=== PATIENT | female | born 1965 | race Caucasian/White ===

== ENCOUNTER 2016-11-02 07:57 | Emergency (ER) | payer MEDICARE, OTHER ==
--- NOTE | 2016-11-02 08:10 | EDM.PDOC ---
ED HPI GENERAL MEDICAL PROBLEM - General Chief Complaint: Lower Extremity Injury/Pain Stated Complaint: RIGHT KNEE PAIN Time Seen by Provider: 11/02/16 08:06 - History of Present Illness INITIAL COMMENTS - FREE TEXT/NARRATIVE: HISTORY AND PHYSICAL: History of present illness: Patient 51-year-old white female presents with a concern of right knee pain 3 weeks she denies fever chills nausea vomiting or other concern she states this may be related to chronic back problems and favoring that knee. Review of systems: As per history of present illness and below otherwise all systems reviewed and negative. Past medical history: As per history of present illness and as reviewed below otherwise noncontributory. Surgical history: As per history of present illness and as reviewed below otherwise noncontributory. Social history: No reported history of drug or alcohol abuse. Family history: As per history of present illness and as reviewed below otherwise noncontributory. Physical exam: HEENT: Atraumatic, normocephalic, pupils reactive, negative for conjunctival pallor or scleral icterus, mucous membranes moist, throat clear, neck supple, nontender, trachea midline. Lungs: Clear to auscultation, breath sounds equal bilaterally, chest nontender. Heart: S1S2, regular, negative for clicks, rubs, or JVD. Abdomen: Soft, nondistended, nontender. Negative for masses or hepatosplenomegaly. Negative for costovertebral tenderness. Pelvis: Stable nontender. Genitourinary: Deferred. Rectal: Deferred. Extremities: Right knee Atraumatic, negative for cords or calf pain. Neurovascular unremarkable. Joint grossly stable no effusion no crepitation no point tenderness neurovascular exam unremarkable Neuro: Awake, alert, oriented. Cranial nerves II through XII unremarkable. Cerebellum unremarkable. Motor and sensory unremarkable throughout. Exam nonfocal. Diagnostics: X-ray right knee Therapeutics: None Impression: #1 right knee pain Definitive disposition and diagnosis as appropriate pending reevaluation and review of above. - Related Data Allergies Allergy/AdvReac Type Severity Reaction Status Date / Time amoxicillin [From Augmentin] Allergy Vomiting Verified 11/02/16 08:03 clavulanic acid Allergy Vomiting Verified 11/02/16 08:03 [From Augmentin] Review of Systems - Review of Systems Review Of Systems: ROS reveals no pertinent complaints other than HPI. ED EXAM, GENERAL - Physical Exam Exam: See Below (See dictation) Course - Orders/Labs/Meds Orders: Active Orders 24 hr Category Date Time Status Knee 3V Rt [CR] Stat Exams 11/02/16 08:08 Ordered Departure - Departure Time of Disposition: 08:09 Disposition: Home, Self-Care 01 Condition: Good Clinical Impression: Knee pain - Discharge Information Forms: ED Department Discharge Additional Instructions: The following information is given to patients seen in the emergency department who are being discharged to home. This information is to outline your options for follow-up care. We provide all patients seen in our emergency department with a follow-up referral. The need for follow-up, as well as the timing and circumstances, are variable depending upon the specifics of your emergency department visit. If you don't have a primary care physician on staff, we will provide you with a referral. We always advise you to contact your personal physician following an emergency department visit to inform them of the circumstance of the visit and for follow-up with them and/or the need for any referrals to a consulting specialist. The emergency department will also refer you to a specialist when appropriate. This referral assures that you have the opportunity for followup care with a specialist. All of these measure are taken in an effort to provide you with optimal care, which includes your followup. Under all circumstances we always encourage you to contact your private physician who remains a resource for coordinating your care. When calling for followup care, please make the office aware that this follow-up is from your recent emergency room visit. If for any reason you are refused follow-up, please contact the [facility] emergency department at and asked to speak to the emergency department charge nurse. HENRY [facility] - [facility] Professional [address], [address] [place] [address] Call schedule routine appointment Motrin or Tylenol as directed return as needed as discussed - My Orders Last 24 Hours: My Active Orders 11/02/16 08:08 Knee 3V Rt [CR] Stat - Assessment/Plan Last 24 Hours: My Active Orders 11/02/16 08:08 Knee 3V Rt [CR] Stat
--- NOTE | 2016-11-02 09:02 | CR ---
EXAMINATION: Right knee HISTORY: Pain COMPARISON: None TECHNIQUE: 3 views FINDINGS/IMPRESSION: There is no acute osseous abnormality, effusion, dislocation, or fracture ident ified. Bone mineralization and joint spaces are grossly preserved. Mild prepatellar soft tissue thic kening.
[2016-11-02 09:35] VITALS: BP 108/57
== END 2016-11-02 09:18 | disposition home or self-care (01) ==
LOC: MW.ED 07:57
DX: M25.561 Pain in right knee (principal); Z88.1 Allergy status to other antibiotic agents
CPT/HCPCS: 73562-26-RT; 73562-RT; 99282; 99283

== ENCOUNTER 2017-01-02 20:22 | Emergency (ER) | payer MEDICARE, MEDICAID ==
[2017-01-02] MEDS ORDERED: LORazepam 1 MG Tab PO ONE (20:46)
[2017-01-02] MEDS ORDERED: Acetaminophen 500 MG Tab PO ONE (20:48)
[2017-01-02] MEDS ORDERED: Famotidine 20 MG Tab PO ONE (20:48)
--- NOTE | 2017-01-02 20:52 | EDM.PDOC ---
ED HPI GENERAL MEDICAL PROBLEM - General Chief Complaint: General Stated Complaint: ANXIETY/HEARTBURN Time Seen by Provider: 01/02/17 20:49 Source of Information: Reports: Patient History Limitations: Reports: No Limitations - History of Present Illness INITIAL COMMENTS - FREE TEXT/NARRATIVE: History of present illness: [51-year-old female comes in with acute anxiety as well as pain in her knee and heartburn. Patient has several family issues going on and she is currently sick at the hospital without her routine medicines] Review of systems: As per history of present illness and below otherwise all systems reviewed and negative. Past medical history: As per history of present illness and as reviewed below otherwise noncontributory. Surgical history: As per history of present illness and as reviewed below otherwise noncontributory. Social history: No reported history of drug or alcohol abuse. Family history: As per history of present illness and as reviewed below otherwise noncontributory. Physical exam: HEENT: Atraumatic, normocephalic, pupils reactive, negative for conjunctival pallor or scleral icterus, mucous membranes moist, throat clear, neck supple, nontender, trachea midline. Lungs: Clear to auscultation, breath sounds equal bilaterally, chest nontender. Heart: S1S2, regular, negative for clicks, rubs, or JVD. Abdomen: Soft, nondistended, nontender. Negative for masses or hepatosplenomegaly. Negative for costovertebral tenderness. Pelvis: Stable nontender. Genitourinary: Deferred. Rectal: Deferred. Extremities: Atraumatic, negative for cords or calf pain. Neurovascular unremarkable. Neuro: Awake, alert, oriented. Cranial nerves II through XII unremarkable. Cerebellum unremarkable. Motor and sensory unremarkable throughout. Exam nonfocal. Assessment is benign save the subjective complaint as noted in history of present illness patient is presenting very anxious and tearful. Patient requesting a routine meds she is trapped in the hospital until much later this evening to be Tylenol, Ativan, and Pepcid for pain in her knee, anxiety and heartburn. Diagnostics: [] Therapeutics: [Ativan, Tylenol, Pepcid ] Impression: [#1Anxiety, #2 knee pain #3 GERD] Plan: [Given medication here to patient until she can get home] Definitive disposition and diagnosis as appropriate pending reevaluation and review of above. epigastric Pain Score (Numeric/FACES): 8 - Related Data Allergies Allergy/AdvReac Type Severity Reaction Status Date / Time amoxicillin [From Augmentin] Allergy Vomiting Verified 01/02/17 20:28 clavulanic acid Allergy Vomiting Verified 01/02/17 20:28 [From Augmentin] morphine Allergy Nausea and Verified 01/02/17 20:28 Vomiting Home Meds: Home Meds Dextroamphetamine/Amphetamine [Adderall 20 mg Tablet] 25 mg PO DAILY 11/02/16 [ History] Gabapentin [Neurontin] 900 mg PO TID 11/02/16 [History] traZODone HCl [Trazodone HCl] 100 mg PO BEDTIME 11/02/16 [History] Acetaminophen [Tylenol] 1 tab PO ASDIRECTED PRN 12/29/16 [History] Celecoxib 200 mg PO DAILY 12/29/16 [History] FLUoxetine HCl [Prozac] 20 mg PO BID 12/29/16 [History] Lisinopril/Hydrochlorothiazide [Lisinopril-Hctz 10-12.5 mg Tab] 1 tab PO DAILY 12/29/16 [History] Naproxen 1 tab PO ASDIRECTED PRN 12/29/16 [History] busPIRone [Buspar] 5 mg PO TID 12/29/16 [History] tiZANidine HCl [Tizanidine HCl] 2 mg PO ASDIRECTED PRN 12/29/16 [History] Past Medical History - Past Health History Medical/Surgical History: Denies Medical/Surgical History HEENT History: Reports: Other (See Below) Other HEENT History: "no teeth" Cardiovascular History: Reports: Hypertension Respiratory History: Reports: Sleep Apnea, SOB Other Respiratory History: does not use CPAP, SOB at times (smokes 1 pack per day for 30 yrs) Gastrointestinal History: Reports: GERD Genitourinary History: Reports: Renal Calculus 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: Musculoskeletal History: Reports: Arthritis, Back Pain, Chronic, Fracture Neurological History: Reports: None Psychiatric History: Reports: ADHD, Anxiety, Depression, PTSD Endocrine/Metabolic History: Reports: Obesity/BMI 30+ Hematologic History: Reports: None Immunologic History: Reports: None Oncologic (Cancer) History: Reports: None Dermatologic History: Reports: None - Infectious Disease History Infectious Disease History: Reports: Measles, Mumps - Past Surgical History Head Surgeries/Procedures: Reports: None Neurological Surgical History: Reports: Lumbar Spine Other Neurological Surgeries/Procedures: hx lower back surgery x2 Musculoskeletal Surgical History: Reports: Arthroscopic Knee, Carpal Tunnel, Other (See Below) Other Musculoskeletal Surgeries/Procedures:: elbow surgery, foot surgery x2 Social & Family History - Family History Family Medical History: Noncontributory - Tobacco Use Smoking Status *Q: Current Every Day Smoker Years of Tobacco use: 30 Packs/Tins Daily: 1 - Caffeine Use Caffeine Use: Reports: Coffee Caffeine Use Comment: 2 cups daily - Recreational Drug Use Recreational Drug Use: No ED ROS GENERAL - Review of Systems Review Of Systems: See Below (History of present illness) ED EXAM, GENERAL - Physical Exam Exam: See Below (History of present illness) Course - Vital Signs Last Recorded V/S: Last Vital Signs Temp 36.5 C 01/02/17 20:29 Pulse 88 01/02/17 20:29 Resp 18 01/02/17 20:29 BP 157/83 H 01/02/17 20:29 Pulse Ox 95 01/02/17 20:29 - Orders/Labs/Meds Orders: Active Orders 24 hr Category Date Time Status Famotidine [Pepcid] Med 01/02/17 20:48 Once 20 mg PO ONETIME ONE Meds: Medications Discontinued Medications Generic Name Dose Route Start Last Admin Trade Name Rashard PRN Reason Stop Dose Admin Acetaminophen 1,000 mg 01/02/17 20:48 Tylenol Extra Strength PO 01/02/17 20:49 ONETIME ONE Lorazepam 1 mg 01/02/17 20:46 Ativan PO 01/02/17 20:47 ONETIME ONE Departure - Departure Time of Disposition: 20:51 Disposition: Home, Self-Care 01 Condition: Good Clinical Impression: Knee pain, GERD (gastroesophageal reflux disease), Anxiety - Discharge Information Additional Instructions: The following information is given to patients seen in the emergency department who are being discharged to home. This information is to outline your options for follow-up care. We provide all patients seen in our emergency department with a follow-up referral. The need for follow-up, as well as the timing and circumstances, are variable depending upon the specifics of your emergency department visit. If you don't have a primary care physician on staff, we will provide you with a referral. We always advise you to contact your personal physician following an emergency department visit to inform them of the circumstance of the visit and for follow-up with them and/or the need for any referrals to a consulting specialist. The emergency department will also refer you to a specialist when appropriate. This referral assures that you have the opportunity for follow-up care with a specialist. All of these measure are taken in an effort to provide you with optimal care, which includes your follow-up. Under all circumstances we always encourage you to contact your private physician who remains a resource for coordinating your care. When calling for follow-up care, please make the office aware that this follow-up is from your recent emergency room visit. If for any reason you are refused follow-up, please contact the [facility] Emergency Department at and asked to speak to the emergency department charge nurse. Resume taking your normal routine meds when you get Home Follow up with your PCP as scheduled Return to ED as needed as discussed - My Orders Last 24 Hours: My Active Orders 01/02/17 20:48 Famotidine [Pepcid] 20 mg PO ONETIME ONE - Assessment/Plan Last 24 Hours: My Active Orders 01/02/17 20:48 Famotidine [Pepcid] 20 mg PO ONETIME ONE
[2017-01-02 21:39] VITALS: BP 158/74
== END 2017-01-02 21:26 | disposition home or self-care (01) ==
LOC: MW.ED 20:22
DX: F41.9 Anxiety disorder, unspecified (principal); M25.569 Pain in unspecified knee; K21.9 Gastro-esophageal reflux disease without esophagitis; I10 Essential (primary) hypertension; E66.9 Obesity, unspecified; F17.210 Nicotine dependence, cigarettes, uncomplicated; Z87.442 Personal history of urinary calculi; Z88.1 Allergy status to other antibiotic agents; Z88.5 Allergy status to narcotic agent; Z79.899 Other long term (current) drug therapy; Z68.35 Body mass index [BMI] 35.0-35.9, adult
CPT/HCPCS: 99282; A9270

== ENCOUNTER 2017-01-03 06:20 | Day surgery (SDC) | payer MEDICARE ==
[~2017-01-03 06:20] MED LIST: Clindamycin Phosphate in D5W 600 MG in Premix Bag 50 BAG IV ONE; Lactated Ringers 1,000 ML IV SCH; Lidocaine 1% 20 ML MDV ONE
[2017-01-03] MEDS ORDERED: Propofol 200 MG/20 ML SDV ONE (07:11)
[2017-01-03] MEDS ORDERED: Ondansetron 4 MG/2 ML SDV ONE (07:11)
[2017-01-03] MEDS ORDERED: fentaNYL 100 MCG/2 ML SDV ONE (07:11)
[2017-01-03] MEDS ORDERED: Midazolam 1 MG/ML 2 ML SDV ONE (07:12)
[2017-01-03] MEDS ORDERED: Clindamycin Phosphate in D5W 600 MG in Premix Bag 50 BAG IV ONE ×2 (07:15)
[2017-01-03] MEDS ORDERED: Succinylcholine/Normal Saline 200 MG/10 ML Syringe ONE (07:38)
--- NOTE | 2017-01-03 07:54 | PCM.PREANE ---
Preanesthetic Assessment - Procedure Proposed Procedure: Right knee arthroscopic lateral and medial menisectomy - Anesthesia/Transfusion/Family Hx Anesthesia History: Prior Anesthesia Without Reaction Family History of Anesthesia Reaction: No Transfusion History: No Prior Transfusion(s) Additional History: Lumbar back rods and pain with lying on her back. Usually sleeps on her side. She took no meds today. She is a smoker. - Review of Systems General: Other (pain in knee) Pulmonary: Other (smoker) Cardiovascular: No Symptoms Gastrointestinal: Other (GERD, takes OTC prilosec) Neurological: Pre-Existing Deficit (lumbar back pain, s/p operative rods, chronic pain - on gabapentin) Other: Reports: Anxiety - Physical Assessment NPO Status Date: 01/02/17 NPO Status Time: 22:00 O2 Sat by Pulse Oximetry: 97 Respiratory Rate: 16 Vital Signs: Last Vital Signs Temp 97.2 F 01/03/17 06:48 Pulse 87 01/03/17 06:48 Resp 16 01/03/17 06:48 BP 151/83 H 01/03/17 06:48 Pulse Ox 97 01/03/17 06:48 Height: 5 ft 5 in Weight: 215 lb ASA Class: 3 Mental Status: Alert & Oriented x3 Airway Class: Mallampati = 1 Dentition: Reports: Edentulous Thyro-Mental Finger Breadths: 3 Mouth Opening Finger Breadths: 3 ROM/Head Extension: Full Lungs: Clear to Auscultation, Normal Respiratory Effort Cardiovascular: Regular Rate, Regular Rhythm, No Murmurs - Allergies Allergies/Adverse Reactions: Allergies Allergy/AdvReac Type Severity Reaction Status Date / Time amoxicillin [From Augmentin] Allergy Vomiting Verified 01/02/17 20:28 clavulanic acid Allergy Vomiting Verified 01/02/17 20:28 [From Augmentin] morphine Allergy Nausea and Verified 01/02/17 20:28 Vomiting - Blood Blood Available: No Product(s) Available: None - Anesthesia Plan Pre-Op Medication Ordered: None - Acknowledgements Anesthesia Type Planned: General Anesthesia Pt an Appropriate Candidate for the Planned Anesthesia: Yes Alternatives and Risks of Anesthesia Discussed w Pt/Guardian: Yes Pt/Guardian Understands and Agrees with Anesthesia Plan: Yes PreAnesthesia Questionnaire - Past Health History Medical/Surgical History: Denies Medical/Surgical History HEENT History: Reports: Other (See Below) Other HEENT History: "no teeth" Cardiovascular History: Reports: Hypertension Respiratory History: Reports: Sleep Apnea, SOB Other Respiratory History: does not use CPAP, SOB at times (smokes 1 pack per day for 30 yrs) Gastrointestinal History: Reports: GERD Genitourinary History: Reports: Renal Calculus 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: Musculoskeletal History: Reports: Arthritis, Back Pain, Chronic, Fracture Neurological History: Reports: None Psychiatric History: Reports: ADHD, Anxiety, Depression, PTSD Endocrine/Metabolic History: Reports: Obesity/BMI 30+ Hematologic History: Reports: None Immunologic History: Reports: None Oncologic (Cancer) History: Reports: None Dermatologic History: Reports: None - Infectious Disease History Infectious Disease History: Reports: Measles, Mumps - Past Surgical History Head Surgeries/Procedures: Reports: None Neurological Surgical History: Reports: Lumbar Spine Other Neurological Surgeries/Procedures: hx lower back surgery x2 Musculoskeletal Surgical History: Reports: Arthroscopic Knee, Carpal Tunnel, Other (See Below) Other Musculoskeletal Surgeries/Procedures:: elbow surgery, foot surgery x2 - SUBSTANCE USE Smoking Status *Q: Current Every Day Smoker Tobacco Use Within Last Twelve Months: Cigarettes Recreational Drug Use History: No - HOME MEDS Home Medications: Home Meds Dextroamphetamine/Amphetamine [Adderall 20 mg Tablet] 25 mg PO DAILY 11/02/16 [ History] Gabapentin [Neurontin] 900 mg PO TID 11/02/16 [History] traZODone HCl [Trazodone HCl] 100 mg PO BEDTIME 11/02/16 [History] Acetaminophen [Tylenol] 1 tab PO ASDIRECTED PRN 12/29/16 [History] Celecoxib 200 mg PO DAILY 12/29/16 [History] FLUoxetine HCl [Prozac] 20 mg PO BID 12/29/16 [History] Lisinopril/Hydrochlorothiazide [Lisinopril-Hctz 10-12.5 mg Tab] 1 tab PO DAILY 12/29/16 [History] Naproxen 1 tab PO ASDIRECTED PRN 12/29/16 [History] busPIRone [Buspar] 5 mg PO TID 12/29/16 [History] tiZANidine HCl [Tizanidine HCl] 2 mg PO ASDIRECTED PRN 12/29/16 [History] - CURRENT (IN HOUSE) MEDS Current Meds: Current Medications Hydrocodone Bitart/Acetaminophen ([place] 325-5 Mg) 1 - 2 tab PO Q4H PRN PRN Reason: Pain Lactated Ringer's (Ringers, Lactated) 1,000 mls @ 100 mls/hr IV ASDIRECTED [facility] Last Admin: 01/03/17 06:54 Dose: 100 mls/hr Discontinued Medications Fentanyl (Sublimaze) Confirm Administered Dose 200 mcg .ROUTE .STK-MED ONE Stop: 01/03/17 07:12 Clindamycin Phosphate 600 mg/ (Premix) 50 mls @ 100 mls/hr IV ONETIME ONE Stop: 01/03/17 06:29 Clindamycin Phosphate 600 mg/ (Premix) 50 mls @ 100 mls/hr IV ONETIME ONE Stop: 01/03/17 07:44 Last Admin: 01/03/17 07:23 Dose: 100 mls/hr Lidocaine HCl (Xylocaine 1%) Confirm Administered Dose 20 ml .ROUTE .STK-MED ONE Stop: 01/02/17 14:03 Lidocaine HCl (Xylocaine-Mpf 1%) Confirm Administered Dose 5 ml .ROUTE .STK-MED ONE Stop: 01/03/17 07:15 Midazolam HCl (Versed 1 Mg/Ml) Confirm Administered Dose 2 mg .ROUTE .STK-MED ONE Stop: 01/03/17 07:13 Ondansetron HCl (Zofran) Confirm Administered Dose 4 mg .ROUTE .STK-MED ONE Stop: 01/03/17 07:12 Propofol (Diprivan 20 Ml) Confirm Administered Dose 200 mg .ROUTE .STK-MED ONE Stop: 01/03/17 07:12 Succinylcholine Chloride (Succinylcholine In Ns Pf) Confirm Administered Dose 200 mg .ROUTE .STK-MED ONE Stop: 01/03/17 07:39
[2017-01-03] MEDS ORDERED: Acetaminophen/HYDROcodone 325-5 MG Tab PO PRN (08:00)
[2017-01-03] MEDS ORDERED: Labetalol 100 MG/20 ML MDV ONE (08:41)
[2017-01-03] MEDS ORDERED: Ketorolac 30 MG/ML SDV ONE (08:47)
[2017-01-03] MEDS ORDERED: Lidocaine 1% 20 ML MDV INJECT ONE (08:47)
--- NOTE | 2017-01-03 09:37 | PCM.POSTAN ---
POST ANESTHESIA ASSESSMENT - MENTAL STATUS Mental Status: Alert, Oriented - VITAL SIGNS Pulse Rate: 79 SaO2: 93 Resp Rate: 14 Blood Pressure: 163/83 Temperature: 36.7 F - RESPIRATORY Respiratory Status: Respiratory Rate WNL, Airway Patent, O2 Saturation Stable - CARDIOVASCULAR CV Status: Pulse Rate WNL, Blood Pressure Stable - GASTROINTESTINAL GI Status: No Symptoms - POST OP HYDRATION Hydration Status: Adequate & Stable
[2017-01-03 10:05] VITALS: BP 158/76
--- NOTE | 2017-01-03 10:28 | PCM.OPNOTE ---
- General Post-Op/Procedure Note Date of Surgery/Procedure: 01/03/17 Operative Procedure(s): R knee arthroscopy with PMM/PLM Post-Op Diagnosis: R knee med/lat meniscus tear, DJD R knee Anesthesia Technique: General ET Tube Primary Surgeon: Eliane Thompson Consumer Attorney: Hans Deleon EBL in mLs: 15 Condition: Good Free Text/Narrative:: tt=14 min #[id number] Intake & Output 01/02/17 01/03/17 01/03/17 22:59 06:59 14:59 Intake Total 950 Balance 950
--- NOTE | 2017-01-03 10:43 | PCM48HPAN ---
Post Anesthesia Note - EVALUATION WITHIN 48HRS OF ANESTHETIC Vital Signs in Normal Range: Yes Patient Participated in Evaluation: Yes Respiratory Function Stable: Yes Airway Patent: Yes Cardiovascular Function Stable: Yes Hydration Status Stable: Yes Pain Control Satisfactory: Yes Nausea and Vomiting Control Satisfactory: Yes Mental Status Recovered: Yes
--- NOTE | 2017-01-03 11:55 | OR ---
SURGEON: Eliane Thompson MD DATE OF PROCEDURE: 01/03/2017 PREOPERATIVE DIAGNOSES: 1. Right knee medial and lateral meniscus tear. 2. Degenerative joint disease, right knee. POSTOPERATIVE DIAGNOSES: 1. Right knee medial and lateral meniscus tear. 2. Degenerative joint disease, right knee. PROCEDURE: Right knee arthroscopy with partial medial and lateral meniscectomy. HOSPITAL RECRUITER: Hans Deleon PA-C. ANESTHESIA: General. ESTIMATED BLOOD LOSS: 15 mL. TOURNIQUET TIME: 14 minutes. COMPLICATIONS: None. DVT PROPHYLAXIS: Not indicated. IMPLANTS USED: None. BRIEF HISTORY: Silvia is a 51-year-old female, who has had complaint of progressive right knee pain. She did have an MRI performed, which showed complex tears of the medial and lateral meniscus along with minor degenerative changes. Due to her lack of response to conservative treatment, I did recommend surgical intervention. The risks and goals of procedure were discussed with the patient and were documented preoperatively. She agreed to proceed. DESCRIPTION OF PROCEDURE: The patient was properly identified and brought to the operating room. She was transferred from the OR cart and placed on the operating table in supine position. General anesthesia was administered. After adequate anesthesia was obtained, a well-padded tourniquet was applied to the right lower extremity. The right lower extremity was then prepped in standard fashion using ChloraPrep solution. It was then sterilely draped. A time-out was performed to ensure correct site and procedure. Preoperative antibiotics were given. The surgical site had been marked preoperatively. An Esmarch was used to exsanguinate the right lower extremity. The tourniquet was inflated to 250 mmHg. A lateral portal arthrotomy was established. Blunt trocar and cannula were introduced into the suprapatellar pouch. Camera, inflow, and outflow were assembled. No significant synovitis was noted in the suprapatellar pouch. The patellofemoral joint was visualized. 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 The central portion of the trochlear groove showed similar findings. The patella appeared to track centrally. I then extended down the lateral and medial gutter. No loose bodies were identified. I then entered the medial compartment. She did have a complex degenerative tear of the medial meniscus. A medial portal arthrotomy was established. Blunt probe was inserted and the meniscus was found to be unstable. Using a combination of biters and shaver, the meniscus was resected back to a stable remnant. It was again probed and found to be stable. A chondroplasty was also performed of the medial femoral condyle. She did have evidence of grade 3 chondromalacia diffusely. She did have 2 areas of 5 mm x 5 mm areas of grade 4 chondromalacia along the medial tibial plateau with the remainder being grade 3 chondromalacia. I then entered the notch. Both the ACL and PCL were visualized and probed and found to be intact. I then entered the lateral compartment. Again, noted was a large tear of the lateral meniscus which was probed and found to be unstable. She did have what appeared to be venous tourniquet and the tourniquet was deflated at this point. This did improve visualization. Using a combination of biters and shaver, the lateral meniscus was resected back to a stable remnant. Again, noted was diffuse grade 3 chondromalacia along the lateral tibial plateau as well as lateral femoral condyle. The meniscus was again probed and the remainder was found to be stable. Instruments were then removed from the knee. The portal sites were closed with 3-0 nylon. Lidocaine 1% was injected along the portal tracts. Xeroform gauze was placed over the wound and bulky dressing was applied. She was awakened from her anesthetic and transferred back to the operating room cart. She was brought to recovery room in stable condition. All needle and sponge counts were correct. ALFA / SANGEETA /[id number]
== END 2017-01-03 10:03 | disposition home or self-care (01) ==
LOC: MW.SDS 06:20
PROVIDERS: ATTEND Orthopaedic Surgery
DX: M23.303 Other meniscus derangements, unspecified medial meniscus, right knee (principal); M23.300 Other meniscus derangements, unspecified lateral meniscus, right knee; M22.41 Chondromalacia patellae, right knee; M17.11 Unilateral primary osteoarthritis, right knee; F17.210 Nicotine dependence, cigarettes, uncomplicated; F41.9 Anxiety disorder, unspecified; F32.9 Major depressive disorder, single episode, unspecified; K21.9 Gastro-esophageal reflux disease without esophagitis; I10 Essential (primary) hypertension; G47.30 Sleep apnea, unspecified; F90.9 Attention-deficit hyperactivity disorder, unspecified type; E66.9 Obesity, unspecified; Z87.442 Personal history of urinary calculi; Z88.0 Allergy status to penicillin; Z88.5 Allergy status to narcotic agent; Z79.899 Other long term (current) drug therapy; Z98.890 Other specified postprocedural states; Z68.35 Body mass index [BMI] 35.0-35.9, adult
CPT/HCPCS: 29880; J1885; J2250; J2405; J3010; J7120; 01400; 88304; J2704